=== PATIENT | female | born 1985 | race Two or more races ===

== ENCOUNTER 2025-04-21 13:08 | Emergency (ER) | payer OTHER ==
[~2025-04-21] VITALS: Ht 162.6 cm; Wt 61.2 kg
[2025-04-21] MEDS ORDERED: PROTONIX40 MG PO (13:40)
[2025-04-21] MEDS ORDERED: CARAFATE1 GM PO (13:40)
[2025-04-21] MEDS ORDERED: PEPCID AC20 MG (13:40)
[2025-04-21] MEDS ORDERED: KETOROLAC TROMETHAMINE 30 MG VIAL IV ONE (15:30)
[2025-04-21] MEDS ORDERED: ACETAMINOPHEN 500 MG GEL..CAP PO ONE ×2 (15:30→15:45)
[2025-04-21] MEDS ORDERED: CEFTRIAXONE SODIUM 1,000 MG VIAL IV ONE (15:30)
[2025-04-21] MEDS ORDERED: 0.9 % SODIUM CHLORIDE 1,000 ML IV ONE (15:30)
[2025-04-21] MEDS ORDERED: KETOROLAC TROMETHAMINE 30 MG VIAL ONE (15:45)
[2025-04-21] MEDS ORDERED: CEFTRIAXONE SODIUM 1,000 MG VIAL ONE (15:45)
[2025-04-21 15:55] LABS: BASO % 0.7 % (0.1-1.2); EOS # 0.05 (0.04-0.54); EOS % 0.5 % (0.7-7.0); LYMPH # 2.68 (1.18-3.74); LYMPH % 25.9 % (19.3-53.1); MEAN PLATELET VOLUME 9.80 fl (9.4-12.4); MONO # 0.60 (0.24-0.82); MONO % 5.8 % (4.7-12.5); NEUT # 6.92 (1.56-6.13); NEUT % 66.8 % (34.0-71.1); RED CELL DISTRIBUTION WIDTH 11.9 % (11.6-14.4)
[2025-04-21 16:18] LABS: ALT/SGPT 20 U/L (12-78); AST/SGOT 9 U/L (15-37); BILIRUBIN TOTAL 0.45 mg/dL (0.3-1.2); BUN CREA RATIO 24 (7.0-25.0); CREATININE SERUM 0.62 mg/dL (0.55-1.02); GFR 107.16; GLOBULINA 3.9 G/DL (2.4-3.5); GLUCOSE FASTING 87 mg/dL (65-100); OSMOLALITY SERUM 281 MOSM/KG (275-295)
[2025-04-21 16:20] LABS: ERYTHROCYTE SEDIMENTATION RATE 6 mm/hr (0-20)
[2025-04-21 18:17] LABS: URINE APPEARANCE Clear; URINE BILIRRUBIN Negative (NEGATIVE); URINE BLOOD Trace; URINE COLOR Dark Yellow; URINE GLUCOSE Negative (NEGATIVE); URINE KETONE Negative (NEGATIVE); URINE LEUKOCYTE Trace; URINE NITRATE Positive; URINE PROTEIN Negative (NEGATIVE); URINE UROBILINOGEN 1.0 E.U./dl
[2025-04-21 18:22] LABS: URINE BACTERIA 119.9 uL (0.0-1933); URINE EPITHELIAL CELLS 4.6 uL (0.0-38.8); URINE RBC 10.4 uL (0.0-20.8); URINE WBC 2.7 uL (0.0-23.2)
[2025-04-21 18:40] LABS: URINE CAST 0.00 uL (0.0-1.40)
[2025-04-21] MEDS ORDERED: TAMS0.4C PO (19:23)
[2025-04-21] MEDS ORDERED: PEPCID AC20 MG PO (19:23)
[2025-04-21] MEDS ORDERED: BACTRIM DS TAB1 EACH PO (19:23)
[2025-04-21] MEDS ORDERED: NORFLEX100MG PO (19:23)
== END 2025-04-21 19:31 | disposition home or self-care (01) ==
LOC: ER 13:09
DX: N39.0 Urinary tract infection, site not specified (principal)

== ENCOUNTER 2025-04-25 14:36 | Inpatient (IN) | payer OTHER ==
[~2025-04-25] VITALS: Ht 157.5 cm; Wt 61.7 kg
[~2025-04-25 14:36] MED LIST: BACTRIM DS TAB1 EACH PO; CARAFATE1 GM PO; NORFLEX100MG PO; PEPCID AC20 MG; PEPCID AC20 MG PO; PROTONIX40 MG PO; TAMS0.4C PO
--- NOTE | 2025-04-25 15:35 | NUR ---
PACIENTE ALERTA Y ORIENTADA X3 QUIEN REFIERE QUE LLEVA VARIOS DEVLIN CON PROBLEMA AL ORINAR, FIEBRE MALESTAR GENERAL. SE LE MONITOREAN S/V PACIENTE PRESENA FIEBRE DE 103.3 Y PULSO EN 153 LATIDOS POR MIN. SE LE REALIZA EKG, SE LE PRESENTA A LA DRA TREJO QUIEN REFIERE UBICA PACIENTE EN OBSERVACION CONECTADA A MONITOR CARIACO, SE EJECUTAN ORDENES MEDICA.
[2025-04-25] MEDS ORDERED: 0.9 % SODIUM CHLORIDE 1,000 ML IV SCH ×2 (15:45→21:45)
[2025-04-25] MEDS ORDERED: ACETAMINOPHEN 500 MG GEL..CAP PO ONE ×2 (15:45→16:01)
[2025-04-25] MEDS ORDERED: FAMOTIDINE/PF 20 MG/2 ML VIAL IV ONE (15:45)
[2025-04-25] MEDS ORDERED: PIPERACILLIN/TAZOBACTAM SODIUM 3.375 GM VIAL IV ONE ×2 (15:45→16:02)
[2025-04-25] MEDS ORDERED: FAMOTIDINE/PF 20 MG/2 ML VIAL ONE (16:02)
[2025-04-25 16:03] LABS: BASO % 0.2 % (0.1-1.2); EOS # 0.03 (0.04-0.54); EOS % 0.6 % (0.7-7.0); LYMPH # 0.24 (1.18-3.74); LYMPH % 4.4 % (19.3-53.1); MEAN PLATELET VOLUME 9.40 fl (9.4-12.4); MONO # 0.40 (0.24-0.82); MONO % 7.4 % (4.7-12.5); NEUT # 4.71 (1.56-6.13); NEUT % 86.8 % (34.0-71.1); RED CELL DISTRIBUTION WIDTH 11.8 % (11.6-14.4)
[2025-04-25 16:08] LABS: ERYTHROCYTE SEDIMENTATION RATE 11 mm/hr (0-20)
--- NOTE | 2025-04-25 16:25 | NUR ---
SE LE ORIENTA A PACIENTE SOBRE LA ORDEN MEDICA, REFIERE ENTENDER LAS MISMAS. SE CANALIZA Y SE LE COLOCA EL IVF'S, SE LE DAYNA LAS MUETRAS Y SE LE ADMINISTRAN LOS MEDICAMENTOS RADHA LA ORDEN MEDICA.
[2025-04-25 16:28] LABS: COVID-19 AG NEGATIVE (NEGATIVE)
[2025-04-25 16:30] LABS: URINE APPEARANCE Clear; URINE BILIRRUBIN Negative (NEGATIVE); URINE BLOOD Small; URINE COLOR Yellow; URINE GLUCOSE Negative (NEGATIVE); URINE KETONE Negative (NEGATIVE); URINE LEUKOCYTE Negative; URINE NITRATE Negative; URINE PROTEIN Negative (NEGATIVE); URINE UROBILINOGEN 0.2 E.U./dl
[2025-04-25 16:34] LABS: URINE BACTERIA 69.6 uL (0.0-1933); URINE EPITHELIAL CELLS 5.6 uL (0.0-38.8); URINE RBC 26.5 uL (0.0-20.8)
[2025-04-25 16:37] LABS: ALT/SGPT 22.0 U/L (12-78); AST/SGOT 13.0 U/L (15-37); BILIRUBIN TOTAL 0.31 mg/dL (0.3-1.2); BUN CREA RATIO 14.0 (7.0-25.0); CREATININE SERUM 0.86 mg/dL (0.55-1.02); GFR 73.46; GLOBULINA 3.9 G/DL (2.4-3.5); GLUCOSE FASTING 123.0 mg/dL (65-100); OSMOLALITY SERUM 273.0 MOSM/KG (275-295)
[2025-04-25 16:38] LABS: URINE CAST 0.14 uL (0.0-1.40); URINE WBC 1.0 uL (0.0-23.2)
[2025-04-25] MEDS ORDERED: BARIUM SULFATE 450 ML ORAL.SUSP PO ONE (20:27)
--- NOTE | 2025-04-25 23:00 | NUR ---
SE RECIBE PACIENTE ALERTA Y ORIENTADA X 3 ESFERAS EN CAMA CON BARANDAS ELEVADAS POR SEGURIDAD. PRESENTANDO BUEN PATRON RESPIRATORIO. H/L EN BRAZO DERECHO AREA MAXIMILIANO DE EDEMA Y ERITEMA. PENDIENTE RESULTADO DE CT. SE [place] A PACIENTE EN CAMA CON BARANDAS ELEVADAS POR SEGURIDAD Y SE MANTIENE EN OBSERVACION POR CAMBIOS.
[2025-04-26] MEDS ORDERED: PIPERACILLIN/TAZOBACTAM SODIUM 3.375 GM in DEXTROSE 5 % IN WATER 100 ML IV SCH (03:51)
[2025-04-26] MEDS ORDERED: PIPERACILLIN/TAZOBACTAM SODIUM 3.375 GM VIAL IV ONE ×3 (03:55→19:17)
[2025-04-26] MEDS ORDERED: 0.9 % SODIUM CHLORIDE 1,000 ML IV ONE (04:00)
--- NOTE | 2025-04-26 04:10 | NUR ---
RE-EVALUA PACIENTE. SE ORIENTA SOBRE TRATAMIENTO MEDICO, REFIERE ENTENDER. SE ADMINISTRA IV'S 0.9NSS BAJANDO A 125ML/HR Y MEDICAMENTO RADHA ORDEN MEDICA. SE MANTIENE EN OBSERVACION POR CAMBIOS EN CONDICION MEDICA.
[2025-04-26] MEDS ORDERED: LACTOBACILLUS ACIDOPHILUS 1 CAP CAP PO ONE (06:04)
[2025-04-26] MEDS ORDERED: ACETAMINOPHEN 500 MG GEL..CAP PO ONE ×3 (06:04→20:16)
[2025-04-26] MEDS ORDERED: ACETAMINOPHEN 500 MG GEL..CAP PO STA (06:15)
[2025-04-26] MEDS ORDERED: LACTOBACILLUS ACIDOPHILUS 1 CAP CAP PO STA (06:16)
--- NOTE | 2025-04-26 08:26 | NUR ---
SE RECIBE PTE FEMENINA DE 39 YRS ALERTA CONCIENTE Y TRANQUILA EN CAMA CON BARANDAS ELEVADA. SE LE ORALIA S/V Y SE MANTIENE EN ESPERA DE CONSULTA CON EL FRANCIS GOFF. SE MANTIENE EN OBSERVACION.
[2025-04-26] MEDS ORDERED: PIPERACILLIN/TAZOBACTAM SODIUM 3.375 GM in 0.9 % SODIUM CHLORIDE 100 ML IV SCH (18:02)
[2025-04-26] MEDS ORDERED: PHENAZOPYRIDINE HCL 100 MG TABLET PO SCH (18:03)
[2025-04-26] MEDS ORDERED: FAMOTIDINE/PF 20 MG in 0.9 % SODIUM CHLORIDE 8 ML IV PUSH SCH (18:06)
[2025-04-26] MEDS ORDERED: 0.9 % SODIUM CHLORIDE 1,000 ML IV SCH (18:15)
[2025-04-26] MEDS ORDERED: ACETAMINOPHEN 325 MG TABLET PO PRN (18:15)
[2025-04-26] MEDS ORDERED: KETOROLAC TROMETHAMINE 30 MG VIAL IV PRN (18:15)
[2025-04-26] MEDS ORDERED: ONDANSETRON HCL 4 MG in 0.9 % SODIUM CHLORIDE 50 ML IV PRN (18:15)
[2025-04-26] MEDS ORDERED: FAMOTIDINE/PF 20 MG/2 ML VIAL ONE (19:17)
[2025-04-26] MEDS ORDERED: ACETAMINOPHEN 500 MG GEL..CAP PO PRN (19:45)
[2025-04-26 20:20] LABS: INR 1.01
[2025-04-26 20:26] VITALS: BP 108/74
[2025-04-27] MEDS ORDERED: PIPERACILLIN/TAZOBACTAM SODIUM 3.375 GM VIAL IV ONE ×2 (00:24→06:16)
[2025-04-27 04:05] VITALS: BP 95/65; O2SAT 96
[2025-04-27 08:00] VITALS: BP 95/62; O2SAT 100
[2025-04-27] MEDS ORDERED: ACETAMINOPHEN 500 MG GEL..CAP PO ONE (12:50)
[2025-04-27 16:34] VITALS: BP 117/76; O2SAT 98
[2025-04-27] MEDS ORDERED: FAMOTIDINE/PF 20 MG/2 ML VIAL ONE (19:50)
[2025-04-27 21:31] VITALS: BP 112/79
[2025-04-27 23:55] VITALS: O2SAT 97
[2025-04-28 02:00] VITALS: BP 100/68; O2SAT 98
[2025-04-28 05:23] VITALS: O2SAT 89
[2025-04-28 09:02] VITALS: O2SAT 85
[2025-04-28 09:17] VITALS: BP 100/69; O2SAT 98
[2025-04-28 11:47] VITALS: O2SAT 84
[2025-04-28] MEDS ORDERED: LACTOBACILLUS ACIDOPHILUS 1 CAP CAP PO SCH (13:21)
[2025-04-28] MEDS ORDERED: SODIUM CL 0.9% 100 ML IV.SOLN IV ONE (15:43)
[2025-04-29 03:32] VITALS: BP 91/61; O2SAT 97
[2025-04-29 08:22] VITALS: BP 105/67
== END 2025-04-29 10:50 | disposition home or self-care (01) | DRG 690 ==
LOC: ER 14:37 → SEC-K 04-26 18:42 → MEDI 04-27 13:16
PROVIDERS: General Practice; Student in an Organized Health Care Education/Training Program; ADMIT Student in an Organized Health Care Education/Training Program; ATTEND Student in an Organized Health Care Education/Training Program
PROC: BW21YZZ Computerized Tomography (CT Scan) of Abdomen and Pelvis using Other Contrast (ICD-10-PCS; principal; 2025-04-25)
PROC: 4A12X4Z Monitoring of Cardiac Electrical Activity, External Approach (ICD-10-PCS; 2025-04-27)
DX: N39.0 Urinary tract infection, site not specified (principal); K90.49 Malabsorption due to intolerance, not elsewhere classified; R00.0 Tachycardia, unspecified